=== PATIENT | male | born 1970 | race Caucasian/White ===

== ENCOUNTER 2022-08-27 09:48 | Emergency (ER) | payer OTHER, SELFPAY ==
--- NOTE | ~2022-08-27 | XR_ITS ---
EXAMINATION: XR CHEST CLINICAL INFORMATION: Cough, rule out pneumonia. COMPARISON: 10/01/2019 chest radiograph. TECHNIQUE: 2 views of the chest were obtained. FINDINGS: The lungs show generalized hyperinflation, but otherwise are clear without cement change. The heart and mediastinal structures are unremarkable. XR/XR chest 2V IMPRESSION: Generalized hyperinflation is nonspecific, but can be seen with COPD. No acute cardiopulmonary process.
[2022-08-27 10:01] VITALS: BP 120/68; PULSE 84; RESP 20; TEMP 36.9; O2SAT 97; BMI 20.3
[2022-08-27 10:27] LABS: COVID-19 Test Negative (Negative); IDNOW Serial# 16C4AD1C; Influenza A Negative (Negative); Influenza B2 Negative (Negative)
--- NOTE | 2022-08-27 11:15 | ED_ITS ---
HPI - URI/Sore Throat General Chief Complaint: Upper Respiratory Symptoms Stated Complaint: cough, congestion Time Seen by Provider: 08/27/22 11:09 Source: patient Mode of arrival: ambulatory Limitations: no limitations History of Present Illness HPI Narrative: Patient is a 52-year-old male who presents emergency department for evaluation of cough and congestion. Onset of symptoms was 2 weeks ago. Reports the cough to be overall nonproductive but he does have intermittent clear/white phlegm. Chest and nasal congestion associated with this. Denies fevers, chills, headache, dizziness, lightheadedness, ear pain, sore throat, chest pain, palpitations, shortness of breath, difficulty breathing, nausea, vomiting, abdominal pain, weakness, recent unintentional weight loss. Related Data Previous Rx's Medication Instructions Recorded azithromycin 250 mg tablet See Rx Instructions PO .COMPLEX #6 08/27/22 tabs Allergies Allergy/AdvReac Type Severity Reaction Status Date / Time aspirin [ASPIRIN] Allergy Severe ESOPHAGUS Unverified 07/10/20 18:43 SWELLING ibuprofen [From MOTRIN] Allergy Severe ESOPHAGUS Unverified 07/10/20 18:43 SWELLING Review of Systems Review of Systems: Constitutional: No fever. No chills. No weakness. Positive fatigue. ENT/ Mouth: No Ear Pain, positive Nasal Congestion, no sore throat, No Rhinorrhea, No Swallowing Difficulty Skin: No rash or itching. Cardiovascular: No chest pain. No palpitations. Respiratory: No shortness of breath. Positive cough. Positive sputum production. Gastrointestinal: No nausea. No vomiting. No diarrhea. No abdominal pain. Genitourinary: No burning micturition. No urinary frequency. Neurologic: No headache. No dizziness. No syncope. No numbness or tingling in the extremities. Musculoskeletal: No muscle pain. No back pain. No joint pain or stiffness. Yes all other systems are reviewed and are negative [facility] Past Medical History Attestation statement: The following information was validated with the patient. Source: old records reviewed Social History Social History Advance Directives: No Advance Directives Information Provided: Yes Physical Exam Vital Signs: Vital Signs: Last Vital Signs Temp 98.5 F 08/27/22 10:01 Pulse 84 08/27/22 10:01 Resp 20 08/27/22 10:01 BP 120/68 08/27/22 10:01 Pulse Ox 97 08/27/22 10:01 O2 Del Method 08/27/22 10:01 BMI result Body Mass Index 20.3 Vital signs have been reviewed as normal and appeared to be correct. Blood pressure normal.? Heart rate normal.? Respiration rate normal. Temperature normal.? Oxygen saturation normal. Appearance: Alert.?Oriented to person, place and time. No acute distress.?Normal affect. Eyes: Pupils equal, round and reactive to light.? ENT: TM normal bilaterally. Pharynx normal.?? Neck: Normal inspection.? Neck supple.??No cervical adenopathy CVS: Heart sounds normal. Normal heart rate and rhythm.? Pulses normal.?? Respiratory: No respiratory distress.? Lung sounds with rhonchi to bilateral upper lobes Abdomen: Soft and non-tender. Normoactive bowel sounds. Skin: Skin warm and dry.? Normal skin color.? ? Extremities: No lower extremity edema.? Neuro: Moves all extremities spontaneously. Sensation intact bilaterally. No motor deficits. Ambulates with normal steady gait. Course Course Course Narrative: Patient is a 52-year-old male with a past medical history of tobacco use, presenting for evaluation of upper respiratory symptoms. COVID-19 testing negative. Influenza testing negative. Well-appearing, nontoxic, afebrile, no tachycardia or tachypnea/hypoxia. Speaking clear full sentences, ambulatory with steady gait. Lung sounds with bilateral upper lobe rhonchi, which may be secondary to undiagnosed chronic lung disease given long-term history tobacco use. Chest x-ray reveals no acute cardiopulmonary process, there is generalized hyperinflation. At this time history and physical exam not consistent with ACS or PE. Symptoms most consistent with a bronchitis, will discharge patient home with azithromycin, discussed conservative treatment including rest, hydration, Tylenol/ibuprofen as needed for fever and body aches, saline nasal spray, humidifier, vwta-bol-jykaqko cold medication. Advised to follow-up with primary care provider as needed, discussed reasons to return back to the emergency department. All questions were answered. Patient discharged home in stable condition. MDM - URI/Sore Throat Medical Records Attestation: I reviewed the patient's medical records. Lab Data Attestation: I reviewed the patient's lab results. Labs: Lab Results 08/27/22 08/27/22 Range/Units 10:04 10:04 COVID-19 (GUSTABO) Negative (Negative) COVID-19 Clin Com See Note Influenza Type A (DAMI) Negative (Negative) Influenza Type B (DAMI) Negative (Negative) Influenza A & B Note See Note Imaging Data Chest x-ray: Radiologist's impression: XR/XR chest 2V IMPRESSION: Generalized hyperinflation is nonspecific, but can be seen with COPD. No acute cardiopulmonary process. Discharge Plan Discharge Clinical Impression: Bronchitis Patient Disposition: Home, Self-Care Instructions: Acute Bronchitis (ED) Additional Instructions: As we discussed, your COVID and influenza test were both negative today. Your chest x-ray is overall normal, there is no indication of pneumonia at this time. You have been given a new prescription for azithromycin, please complete this entire course. Be sure to rest, stay well hydrated drinking plenty of fluids, eat small frequent meals. Tylenol/ibuprofen can be used as needed for fever/pain. Xkvl-ybj-lqlvchi cold medications may be helpful as well for symptoms. Saline nasal spray, humidifier may be helpful for nasal congestion. You may return to the emergency department with any new or worsening symptoms or concerns. Follow-up with your primary care provider as needed. Prescriptions: New azithromycin 250 mg tablet See Rx Instructions .ROUTE .COMPLEX Qty: 6 0RF Rx Instructions: For 250 mg dose pack: take 500 mg today (day 1), then 250 mg for 4 days (days 2-5) Referrals: Jose Wadsworth PA [Primary Care Provider] - Interventions: ED Discharge Assessment Last Done: 08/27/22 13:35 Discharge Date/Time: 08/27/22 13:37
--- NOTE | 2022-08-27 13:31 | PC.NURSE ---
PT EVALUATED BY PROVIDER. PT AWAKE, ALERT AND ORIENTED X 3 SKIN WARM AND DRY. RESP UNLABORED DENIES N/V. PT INTERMITTENTLY COUGHING. REPORTS HE SMOKES BOTH MARIJUANA AND CIGARETTES
== END 2022-08-27 13:37 | disposition home or self-care (01) ==
PROVIDERS: Emergency Provider Emergency Medicine; PCP Physician Assistant Medical
DX: J40 Bronchitis, not specified as acute or chronic (principal); R05.9 Cough, unspecified; Z20.822 Contact with and (suspected) exposure to COVID-19; Z79.899 Other long term (current) drug therapy
CPT/HCPCS: 71046; 87502; 87635; 99282; 99283

== ENCOUNTER 2022-09-02 08:47 | Emergency (ER) | payer MEDICAID, SELFPAY ==
[2022-09-02 09:08] VITALS: BP 164/92; PULSE 80; RESP 18; TEMP 36.6; O2SAT 98; BMI 20.3
--- NOTE | 2022-09-02 10:19 | ED_ITS ---
HPI - URI/Sore Throat General Chief Complaint: General Medical Stated Complaint: med refill, still coughing Time Seen by Provider: 09/02/22 09:52 Source: patient Mode of arrival: ambulatory Limitations: no limitations History of Present Illness HPI Narrative: 52-year-old male who reports he has a past medical history of asthma/COPD starting emphysema who is a daily smoker presenting to the ER with complaints of 3 weeks of nasal congestion/rhinorrhea with productive cough with yellow/green color sputum that continues to worsen. He reports that he was seen here on 08/27/2022 and diagnosed with bronchitis. He had a negative COVID/RSV/flu and a chest x-ray. He reports he took the azithromycin prescription as prescribed in feels a little bit better but feels like he needs another course of antibiotics and possibly some Hycodan. He reports that he has a chronic history of left tympanic perforation and he used to go to the ENT doctor who would prescribe him Hycodan which provided moderate symptomatic relief to him. He reports that he does not believe he needs another chest x-ray. He denies any fevers, chills, dizziness, headaches, neck pain/stiffness, trouble swallowing or breathing, chest pain or shortness breath, dyspnea on exertion, orthopnea, palpitations, paresthesias, nausea/vomiting/diarrhea constipation, black or bloody stools, abdominal pain, flank pain, lower extremity edema or calf tenderness, recent travel or sick contacts or any other symptoms complaints or concerns at this time. MD elicited complaint: cough, rhinorrhea and nasal congestion Pertinent past history: COPD and asthma Onset (ago): week(s) (3) Consistency: constant Severity: moderate Description of mucous: clear, watery, yellow and green Able to tolerate fluids by mouth: Yes Exacerbating factors: nothing Relieving factors: nothing Associated symptoms: rhinorrhea, nasal congestion and cough Treatments prior to arrival: antibiotics Related Data Previous Rx's Medication Instructions Recorded azithromycin 250 mg tablet See Rx Instructions PO .COMPLEX #6 08/27/22 tabs albuterol sulfate 90 mcg/actuation 1 inh inhalation QID PRN shortness 09/02/22 aerosol inhaler of breath or wheezing #8.5 grams doxycycline monohydrate 100 mg 100 mg PO BID 10 days #20 caps 09/02/22 capsule hydrocodone-homatropine 5 mg-1.5 5 ml PO Q6H PRN cough #200 mL 09/02/22 mg/5 mL (5 mL) oral syrup (Hycodan) prednisone 20 mg tablet 40 mg PO DAILY rash 5 days #10 tabs 09/02/22 Allergies Allergy/AdvReac Type Severity Reaction Status Date / Time aspirin [ASPIRIN] Allergy Severe ESOPHAGUS Verified 09/02/22 09:08 SWELLING ibuprofen [From MOTRIN] Allergy Severe ESOPHAGUS Verified 09/02/22 09:08 SWELLING Review of Systems Review of Systems: Constitutional : No Weight loss, No Fever, No Chills, No Night Sweats, No Fatigue, No Malaise ENT/Mouth : +Nasal congestion/rhinorrhea, No Hearing loss, No Ear Pain, No Sinus Pain, No Hoarseness, No sore throat, No Swallowing Difficulty Eyes: No Eye Pain, No Swelling, No Redness, No Foreign Body, No Discharge, No Vision Changes Cardiovascular : No Chest Pain, No SOB, No Dyspnea on Exertion, No Orthopnea, No Edema, No Palpitations Respiratory : + Cough, + Sputum, No Wheezing, No Smoke Exposure, No Dyspnea Gastrointestinal : No Nausea, No Vomiting, No Diarrhea, No Constipation, No abdominal Pain, No Hematochezia, No Melena Genitourinary : no irregular bleeding, No Dysuria, No Urinary Frequency, No Hematuria, No Urinary Incontinence, No Urgency, No Flank Pain, No Urinary Flow Changes, No Hesitancy Musculoskeletal : No joint pain, No Myalgias, No Joint Swelling Skin : No Skin Lesions, No rash Neuro : No Weakness, No Numbness, No Paresthesias, No Loss of Consciousness, No Dizziness, No Headache Psych : No Anxiety/Panic, No Depression, No SI/HI/AH/VH, No Social Issues, Heme/Lymph: No Bruising, No Bleeding,No Lymphadenopathy Endocrine : No Polyuria, No Polydipsia, No Temperature Intolerance Yes all other systems are reviewed and are negative [facility] Past Medical History Attestation statement: The following information was validated with the patient. Source: old records reviewed and nursing notes reviewed Social History Social History Advance Directives: No Physical Exam Vital Signs: Vital Signs: Last Vital Signs Temp 97.8 F 09/02/22 09:08 Pulse 80 09/02/22 09:08 Resp 18 09/02/22 09:08 BP 164/92 H 09/02/22 09:08 Pulse Ox 98 09/02/22 09:08 O2 Del Method 09/02/22 09:08 BMI result Body Mass Index 20.3 vital signs have been reviewed as normal and appeared to be correct. Blood pressure normal. Heart rate normal. Respiration rate normal. Temperature normal. Oxygen saturation normal. Appearance: Alert. Oriented X3. No acute distress. Head: Normal external exam. Normocephalic. Atraumatic. Eyes: PERRLA. EOMI. Conjunctiva and sclera normal. Eyelids normal. ENT: EAC normal. Patient has a chronic left tympanic membrane perforation. Otherwise left tympanic membrane is pearly white no erythema noted. Right tympanic membrane within normal limits. Posterior pharynx mildly erythematous although no exudate is noted. Soft and hard palate are within normal limits Uvula midline. Moist mucous membranes. No lesions/ulcerations or masses noted on the tongue. Normal voice. No trismus noted. No drooling noted. No muffled voice noted. Neck: Normal inspection. Neck supple. FROM. No adenopathy. Thyroid Normal. No tracheal deviation noted. No crepitus is noted. No meningeal signs. No neck mass noted. No signs of trauma noted. CVS: Normal heart rate and rhythm. Heart sound normal. Pulses normal throughout. No murmurs/rales/gallops. Respiratory: No respiratory distress. Painless inspiration. Breath sounds normal. No wheezes/rales/rhonchi noted. Chest nontender. No crepitus is noted. No accessory muscle usage noted or decreased air movement noted. No signs of trauma. Back: Full range of motion noted. Skin: Skin warm and dry. Normal skin color. Normal skin turgor. No rashes/lesions/lacerations noted. Extremities: Extremities exhibit normal range of motion and nontender. Neuro: Oriented X 3. No motor deficit. No sensory deficit. Reflexes normal. Normal steady gait. No focal neuro deficits noted. CN's II-XII intact bilaterally? Course Course Course Narrative: Patient most likely bronchitis infection. Vital signs are stable. Lungs are clear to auscultation. CV RRR. He is refusing a chest x-ray and I do not believe he actually needs 1 as he had a normal chest x-ray a few days ago and his lung exam is normal today. Will DC home with another course of antibiotics albuterol inhaler and cough medicine and instructions return if any new or worsening symptoms follow up with primary care provider. Patient understands agrees with this plan. MDM - URI/Sore Throat Medical Records Attestation: I reviewed the patient's medical records. Lab Data Attestation: I reviewed the patient's lab results. Discharge Plan Discharge Clinical Impression: Bronchitis Patient Disposition: Home, Self-Care Instructions: Acute Bronchitis (ED) Prescriptions: New prednisone 20 mg tablet 40 mg PO DAILY 5 Days Qty: 10 0RF doxycycline monohydrate 100 mg capsule 100 mg PO BID 10 Days Qty: 20 0RF albuterol sulfate 90 mcg/actuation HFA aerosol inhaler 1 inh inhalation QID PRN (Reason: shortness of breath or wheezing) Qty: 8.5 0RF hydrocodone-homatropine [Hycodan] 5-1.5 mg/5 mL (5 mL) syrup 5 ml PO Q6H PRN (Reason: cough) Qty: 200 0RF Rx Instructions: Partial Fill upon patient request. No Action azithromycin 250 mg tablet See Rx Instructions .ROUTE .COMPLEX Qty: 6 0RF Rx Instructions: For 250 mg dose pack: take 500 mg today (day 1), then 250 mg for 4 days (days 2-5) Referrals: Jose Wadsworth PA [Primary Care Provider] - 2 days
== END 2022-09-02 10:41 | disposition home or self-care (01) ==
PROVIDERS: Emergency Provider Emergency Medicine Emergency Medical Services; PCP Physician Assistant Medical
DX: J40 Bronchitis, not specified as acute or chronic (principal); F17.200 Nicotine dependence, unspecified, uncomplicated
CPT/HCPCS: 99283

== ENCOUNTER 2022-09-30 16:41 | Emergency (ER) | payer MEDICAID, SELFPAY ==
[2022-09-30 17:58] VITALS: BP 110/76; PULSE 83; RESP 20; TEMP 37.1; O2SAT 95; BMI 20.3
--- NOTE | 2022-09-30 17:58 | ED.WOUNDLAC ---
HPI - Wound/Laceration General Chief Complaint: Skin/Abscess/Foreign Body <Jacqueline Rust NP - Last Filed: 09/30/22 18:00> Stated Complaint: Lac work injury <Jacqueline Rust NP - Last Filed: 09/30/22 18:00> Time Seen by Provider: 09/30/22 19:53 <Jacqueline Rust NP - Last Filed: 09/30/22 18:00> Source: patient <Annalee Thompson NP - Last Filed: 10/01/22 00:45> Mode of arrival: ambulatory <NO aMcias Last Filed: 10/01/22 00:45> Limitations: no limitations <Annalee Thompson NP - Last Filed: 10/01/22 00:45> History of Present Illness HPI narrative: 52-year-old male presents for evaluation of a work related injury with a left thumb laceration. He has a flap laceration to the lateral thenar process, he is unsure when his last Tdap vaccine was updated. He does have full range of motion to the digit, and has no other complaints at this time. <Annalee Thompson NP - Last Filed: 10/01/22 00:45> Onset (ago): hour(s) (Within the hour of arrival) <Annalee Thompson NP - Last Filed: 10/01/22 00:45> Extremity Location: left: hand (Laceration thumb) <Annalee Thompson NP - Last Filed: 10/01/22 00:45> Place: work <nAnalee Thompson NP - Last Filed: 10/01/22 00:45> Patient tetanus UTD: No <Annalee Thompson NP - Last Filed: 10/01/22 00:45> Context: accidental <NO Macias Last Filed: 10/01/22 00:45> Associated symptoms: pain <Annalee Thompson NP - Last Filed: 10/01/22 00:45> Treatments prior to arrival: bandage <NO Macias Last Filed: 10/01/22 00:45> Related Data Home Medications: Previous Rx's Medication Instructions Recorded azithromycin 250 mg tablet See Rx Instructions PO .COMPLEX #6 11/04/22 tabs albuterol sulfate 90 mcg/actuation 1 inh inhalation QID PRN shortness 09/02/22 aerosol inhaler of breath or wheezing #8.5 grams doxycycline monohydrate 100 mg 100 mg PO BID 10 days #20 caps 09/02/22 capsule hydrocodone-homatropine 5 mg-1.5 5 ml PO Q6H PRN cough #200 mL 09/02/22 mg/5 mL (5 mL) oral syrup (Hycodan) prednisone 20 mg tablet 40 mg PO DAILY rash 5 days #10 tabs 09/02/22 <Jacqueline Rust NP - Last Filed: 09/30/22 18:00> Allergies/Adverse Reactions: Allergies Allergy/AdvReac Type Severity Reaction Status Date / Time aspirin [ASPIRIN] Allergy Severe ESOPHAGUS Verified 09/02/22 09:08 SWELLING ibuprofen [From MOTRIN] Allergy Severe ESOPHAGUS Verified 09/02/22 09:08 SWELLING <Jacqueline Rust NP - Last Filed: 09/30/22 18:00> Review of Systems Review of Systems: Constitutional: No Fever, No Chills Cardiovascular: No Chest Pain, No SOB Respiratory: No Cough, No Dyspnea Musculoskeletal: positive left thumb pain Skin: Positive left thumb laceration, Neuro: No Weakness, No Numbness, No Paresthesias, No Loss of Consciousness, No Dizziness, No Headache <Annalee Thompson NP - Last Filed: 10/01/22 00:45> Yes all other systems are reviewed and are negative <Annalee Thompson NP - Last Filed: 10/01/22 00:45> [facility] Past Medical History Attestation statement: The following information was validated with the patient. <Annalee Thompson NP - Last Filed: 10/01/22 00:45> Source: old records reviewed <Annalee Thompson NP - Last Filed: 10/01/22 00:45> Social History Social History: Social History Advance Directives: No Advance Directives Information Provided: No <NO Dugan Last Filed: 09/30/22 18:00> Physical Exam Vital Signs: Vital Signs: Last Vital Signs Temp 98.7 F 09/30/22 17:58 Pulse 83 09/30/22 17:58 Resp 20 09/30/22 17:58 BP 110/76 09/30/22 17:58 Pulse Ox 95 09/30/22 17:58 O2 Del Method 09/30/22 17:58 BMI result Body Mass Index 20.3 <Jacqueline Rust NP - Last Filed: 09/30/22 18:00> Vital Signs: Last Vital Signs Temp 98.7 F 09/30/22 17:58 Pulse 83 09/30/22 17:58 Resp 20 09/30/22 17:58 BP 110/76 09/30/22 17:58 Pulse Ox 95 09/30/22 17:58 O2 Del Method 09/30/22 17:58 BMI result Body Mass Index 20.3 <Annalee Thompson NP - Last Filed: 10/01/22 00:45> Appearance: Alert. Oriented X3. No acute distress. Eyes: Pupils equal, round and reactive to light. ENT: Pharynx normal. Neck: Normal inspection. Neck supple. CVS: Normal heart rate and rhythm. Pulses normal. Respiratory: No respiratory distress. Breath sounds normal. Abdomen: Soft and nontender. Skin: 2 cm flap laceration to the left lateral thenar process. Extremities: Full range of motion to all digits. Brisk capillary refill and equal pulses. Neuro: No motor deficit. No sensory deficit. Cranial nerves 2-12 intact. <Annalee Thompson NP - Last Filed: 10/01/22 00:45> Course Course Course Narrative: This is rapid medical exam. Defer additional HPI, PE, review of systems primary provider. Patient with laceration to the left hand from a bottle that was broken. Patient is right-hand dominant. Patient is unsure of tetanus. Patient is able to flex extend the finger with no difficulty. Patient will need sutures. <Jacqueline Rust NP - Last Filed: 09/30/22 18:00> This is rapid medical exam. Defer additional HPI, PE, review of systems primary provider. Patient with laceration to the left hand from a bottle that was broken. Patient is right-hand dominant. Patient is unsure of tetanus. Patient is able to flex extend the finger with no difficulty. Patient will need sutures. 52-year-old male presents for laceration to the left lateral thenar process. Has full range of motion to all digits. No indication of tendon deficit. Brisk capillary refill equal pulses. Plan of care is for updating Tdap vaccine, and laceration repair. Laceration repaired. Prepped and draped in sterile fashion. Please refer to procedure note for full detail. Patient tolerated procedure well patient verbalized understanding of and agrees to plan of care discharge home. Verbalized understanding that he must follow up with [facility], and return in 10-14 days for suture removal. Does understand the discharge instructions, that he should not wash dishes, and keep his hands clean and dry. <Annalee Thompson NP - Last Filed: 10/01/22 00:45> Medications Administered Discontinued Medications Generic Name Dose Route Start Last Admin Trade Name Freq PRN Reason Stop Dose Admin Acetaminophen 975 mg 09/30/22 18:00 09/30/22 18:03 Acetaminophen 325 Mg Tablet PO 09/30/22 18:01 975 mg ONCE ONE Administration Diphtheria/Tetanus/Acell Pertussis 0.5 ml 09/30/22 19:56 09/30/22 20:07 Diphth,Pertus(Acell),Tet Adult 0.5 Ml Syringe IM 09/30/22 19:57 0.5 ml .ONCE ONE Administration Lidocaine HCl 4 ml 09/30/22 19:56 09/30/22 20:09 Lidocaine Hcl 2% 2 Ml Vial INFILTRATI 09/30/22 19:57 4 ml ONCE ONE Administration <Jacqueline Rust [employer] - Last Filed: 09/30/22 18:00> Medications Administered Discontinued Medications Generic Name Dose Route Start Last Admin Trade Name Freq PRN Reason Stop Dose Admin Acetaminophen 975 mg 09/30/22 18:00 09/30/22 18:03 Acetaminophen 325 Mg Tablet PO 09/30/22 18:01 975 mg ONCE ONE Administration Diphtheria/Tetanus/Acell Pertussis 0.5 ml 09/30/22 19:56 09/30/22 20:07 Diphth,Pertus(Acell),Tet Adult 0.5 Ml Syringe IM 09/30/22 19:57 0.5 ml .ONCE ONE Administration Lidocaine HCl 4 ml 09/30/22 19:56 09/30/22 20:09 Lidocaine Hcl 2% 2 Ml Vial INFILTRATI 09/30/22 19:57 4 ml ONCE ONE Administration <NO Macias Last Filed: 10/01/22 00:45> Medical Decision Making Medical Decision Making Differential Diagnoses: Differential diagnosis (Laceration, dislocation, tendon laceration) <Annalee Thompson NP - Last Filed: 10/01/22 00:45> Consideration of admission/observation: Consideration of Admission/Observation (This patient does not require admission) <Annalee Thompson NP - Last Filed: 10/01/22 00:45> Tests considered but not performed: Tests Considered But Not Performed (X-rays considered, however patient does have full range of motion, laceration is clean, does not involve muscle or tendon. No visible foreign bodies. X-rays not indicated at this time.) <Annalee Thompson NP - Last Filed: 10/01/22 00:45> Prescription medication was considered but ultimately not given after discussion with patient/family. (e.g., pain medication, antiviral, antibiotic): Prescriptions considered but not given I considered prescription management with: Pain Medication Additional Comments: Patient will take Tylenol and Motrin [id number]. Narcotic not indicated for this injury. <Annalee Thompson NP - Last Filed: 10/01/22 00:45> Procedures Laceration Laceration 1: Site: hand <Annalee Thompson NP - Last Filed: 10/01/22 00:45> Side (If applicable): left (thumb) <Annalee Thompson NP - Last Filed: 10/01/22 00:45> Size (cm): 3 <Annalee Thompson NP - Last Filed: 10/01/22 00:45> Description: flap <Annalee Thompson NP - Last Filed: 10/01/22 00:45> Depth: simple, single layer <Annalee Thompson NP - Last Filed: 10/01/22 00:45> Local Anesthetic: lidocaine 2% <NO Macias Last Filed: 10/01/22 00:45> Amount of anesthesia used (mL): 4 <ON Macias Last Filed: 10/01/22 00:45> Pre-repair: wound explored, irrigated extensively and deep structures intact <Annalee Thompson NP - Last Filed: 10/01/22 00:45> Skin layer closed with: nylon <NO Macias Last Filed: 10/01/22 00:45> Size (cm): 4-0 <NO Macias Last Filed: 10/01/22 00:45> Number of sutures: 13 <Annalee Thompson NP - Last Filed: 10/01/22 00:45> Technique: simple, interrupted <Annalee Thompson NP - Last Filed: 10/01/22 00:45> Discharge Plan Discharge Clinical Impression: Laceration of thumb <NO Dugan Last Filed: 09/30/22 18:00> Patient Disposition: Home, Self-Care <NO Dugan Last Filed: 09/30/22 18:00> Instructions: Laceration (ED), Finger Laceration (ED) <NO Dugan Last Filed: 09/30/22 18:00> Additional Instructions: You were evaluated for laceration to your left thumb. Please keep sutures in for 10-14 days. You cannot wash dishes or served food until your wound is healed. Follow-up with [facility] on Tuesday. Please call and request an appointment. We updated your Tdap vaccine today. Thank you for choosing this emergency department for evaluation. Please follow-up with primary care physician as needed. Return to the emergency department for any new, concerning, or worsening symptoms. <NO Dugan Last Filed: 09/30/22 18:00> Prescriptions: No Action azithromycin 250 mg tablet See Rx Instructions .ROUTE .COMPLEX Qty: 6 0RF Rx Instructions: For 250 mg dose pack: take 500 mg today (day 1), then 250 mg for 4 days (days 2-5) prednisone 20 mg tablet 40 mg PO DAILY 5 Days Qty: 10 0RF doxycycline monohydrate 100 mg capsule 100 mg PO BID 10 Days Qty: 20 0RF albuterol sulfate 90 mcg/actuation HFA aerosol inhaler 1 inh inhalation QID PRN (Reason: shortness of breath or wheezing) Qty: 8.5 0RF hydrocodone-homatropine [Hycodan] 5-1.5 mg/5 mL (5 mL) syrup 5 ml PO Q6H PRN (Reason: cough) Qty: 200 0RF Rx Instructions: Partial Fill upon patient request. <Jacqueline Rust NP - Last Filed: 09/30/22 18:00> Referrals: [facility] [Provider Group] - 3 days (Please present to [facility] on Tuesday for evaluation.) <Jacqueline Rust NP - Last Filed: 09/30/22 18:00> Stand Alone Forms: Work/School Release <Jacqueline Rust NP - Last Filed: 09/30/22 18:00> Interventions: ED Discharge Assessment Last Done: 09/30/22 21:23 <Jacqueline Rust NP - Last Filed: 09/30/22 18:00> Discharge Date/Time: 09/30/22 21:24 <Jacqueline Rust NP - Last Filed: 09/30/22 18:00>
[2022-09-30] MEDS: Acetaminophen 325 MG TABLET 975 MG PO (18:03)
[2022-09-30] MEDS: Diphth,Pertus(ACell),Tet Adult 0.5 ML SYRINGE IM (20:07)
== END 2022-09-30 21:24 | disposition home or self-care (01) ==
PROVIDERS: Emergency Provider Internal Medicine
DX: S61.012A Laceration without foreign body of left thumb without damage to nail, initial encounter (principal); S60.512A Abrasion of left hand, initial encounter; W26.9XXA Contact with unspecified sharp object(s), initial encounter; Y93.9 Activity, unspecified; Y92.9 Unspecified place or not applicable; Y99.0 Civilian activity done for income or pay
CPT/HCPCS: 12042; 90471; 90715; 99283; 99284

== ENCOUNTER → 2022-10-04 13:29 | Outpatient (BNVA) | payer MEDICAID, SELFPAY | PROVIDERS: Visit Provider Physician Assistant Medical | DX: S61.012A Laceration without foreign body of left thumb without damage to nail, initial encounter (principal); W25.XXXA Contact with sharp glass, initial encounter; L03.012 Cellulitis of left finger | CPT/HCPCS: 99203 ==

== ENCOUNTER → 2022-10-08 10:24 | Outpatient (BNVA) | payer MEDICAID, SELFPAY | PROVIDERS: Visit Provider Physician Assistant Medical | DX: S61.012A Laceration without foreign body of left thumb without damage to nail, initial encounter (principal); W25.XXXA Contact with sharp glass, initial encounter; L03.012 Cellulitis of left finger | CPT/HCPCS: 99212; 99213 ==

== ENCOUNTER → 2022-10-11 11:36 | Outpatient (BNVA) | payer MEDICAID, SELFPAY | PROVIDERS: Visit Provider Physician Assistant Medical | DX: S61.012A Laceration without foreign body of left thumb without damage to nail, initial encounter (principal); W25.XXXA Contact with sharp glass, initial encounter; L03.012 Cellulitis of left finger | CPT/HCPCS: 99213 ==

== ENCOUNTER → 2022-10-19 09:41 | Outpatient (BNVA) | payer MEDICAID, SELFPAY | PROVIDERS: Visit Provider Internal Medicine | DX: S61.012A Laceration without foreign body of left thumb without damage to nail, initial encounter (principal); W25.XXXA Contact with sharp glass, initial encounter; L03.012 Cellulitis of left finger | CPT/HCPCS: 99213 ==